=== PATIENT | male | born 1940 | race African-American/Black ===

== ENCOUNTER 2017-12-16 07:46 | Outpatient (CLI) | payer MEDICARE ==
--- NOTE | 2017-12-16 10:51 | CT ---
CHEST CT SCAN WITHOUT IV CONTRAST: History: 77-year-old male with history of abnormal chest radiograph. Exam performed without IV contrast since an IV cannot be obtained. Comparison: No prior report or prior radiographs are available for comparison. FINDINGS: Minimal scattered areas of pleural thickening bilaterally. Old granulomatous calcifications. Some naseem cristy pleural based linear and parenchymal changes in the lateral aspects of the right and left lowe r lobes, the left lingula, with a small subpleural bulla or bleb in the region of the lingula. No dis crete pulmonary mass. Aortic root approximates 4.3 cm. Coronary artery vascular calcifications. Multi level thoracic spine spondylosis. Small cyst in the medial aspect of the upper pole of the left kidne y. IMPRESSION: Some primarily pleural based linear and parenchymal changes as well as some minimal focal pleural thi ckening bilaterally. No discrete pulmonary mass. No mediastinal adenopathy. Other findings as above. POS: [facility]
== END 2017-12-16 07:47 | disposition home or self-care (01) ==
LOC: MADLAB 07:46
PROVIDERS: ATTEND Physician Assistant
DX: R93.8 Abnormal findings on diagnostic imaging of other specified body structures (principal); I25.10 Atherosclerotic heart disease of native coronary artery without angina pectoris; M47.894 Other spondylosis, thoracic region; N28.1 Cyst of kidney, acquired
CPT/HCPCS: 36415; 71250; 82565

== ENCOUNTER 2020-03-29 11:31 | Outpatient (CLI) | payer MEDICARE ==
--- NOTE | 2020-03-29 12:41 | ULT ---
US Renal Bilateral STANDARD: 03/29/2020 11:30 AM CLINICAL HISTORY: Chronic kidney disease. STUDY: Renal ultrasound COMPARISON: None. FINDINGS: Right kidney: The right kidney is not in the usual location and was seen in the right pelvis. Echogenicity: Normal. Masses/cysts: Multiple cysts measuring up to 5.3 cm in size Hydronephrosis: None. Calcifications: None. Length: 9.7 cm Left kidney: Echogenicity: Normal. Masses/cysts: None. Hydronephrosis: None. Calcifications: None. Length: 11.7 cm Limited visualization of the urinary bladder is unremarkable. No significant post void residual is se en. IMPRESSION: Right pelvic kidney containing cysts as above
== END 2020-03-29 11:32 | disposition home or self-care (01) ==
LOC: MADLAB 11:31
PROVIDERS: ATTEND Internal Medicine Nephrology
DX: N18.30 Chronic kidney disease, stage 3 unspecified (principal); N28.1 Cyst of kidney, acquired
CPT/HCPCS: 76770

== ENCOUNTER 2022-01-18 11:39 | Emergency (ER) | payer MEDICARE ==
[2022-01-18] MEDS ORDERED: Boostrix 0.5 ML (Tdap) VIAL (>/=7 yrs of age) ONE (12:11)
[2022-01-18] MEDS ORDERED: Lidocaine 1% (PF) 30 ML VIAL ONE (12:11)
[2022-01-18] MEDS ORDERED: Sulfameth/Trimethoprim DS 800-160mg TAB ONE (12:11)
[2022-01-18] MEDS ORDERED: Bacitracin 1 PK ONE (12:52)
== END 2022-01-18 13:08 | disposition home or self-care (01) ==
LOC: MADERS 11:39
DX: S90.852A Superficial foreign body, left foot, initial encounter (principal); L02.612 Cutaneous abscess of left foot; I10 Essential (primary) hypertension; X58.XXXA Exposure to other specified factors, initial encounter; Y92.009 Unspecified place in unspecified non-institutional (private) residence as the place of occurrence of the external cause; Z23 Encounter for immunization; Z87.891 Personal history of nicotine dependence; Z79.899 Other long term (current) drug therapy
CPT/HCPCS: 10120; 90471; 90715; J2001

== ENCOUNTER 2022-09-08 08:26 | Emergency (ER) | payer MEDICARE ==
[2022-09-08] MEDS ORDERED: Sodium Chloride 0.9% 1,000 ML ONE (08:55)
[2022-09-08 09:10] LABS: Hemoglobin 12.2 g/dL (14.0-18.0); Mean Corpuscular Hemoglobin 26.3 pg (27.0-31.0); Mean Corpuscular Volume 84.6 fl (78.0-98.0); Mean Platelet Volume 10.3 fL (7.4-10.4); Platelet Count 217 10x3/uL (130-400); RBC Distribution Width 14.8 % (11.5-14.5); Red Blood Cell (RBC) Count 4.66 mill/uL (4.70-6.10); White Blood Cell (WBC) Count 6.5 10x3/uL (4.8-10.8)
[2022-09-08] MEDS ORDERED: Acetaminophen 500 MG TAB ONE (09:40)
[2022-09-08 09:44] LABS: ALT (SGPT) 7 U/L (8-55); AST (SGOT) 12 U/L (5-34); Albumin 3.9 g/dL (3.4-4.8); Alkaline Phosphatase 90 U/L (40-110); Anion Gap 16 mmol/L (10-20); BUN (Urea Nitrogen) 20 mg/dL (8.4-25.7); Bilirubin, Total 0.2 mg/dL (0.2-1.2); Calc. Creatinine Clearance 0 mL/min (70-130); Calcium 9.5 mg/dL (7.8-10.44); Carbon Dioxide 14 mmol/L (23-31); Chloride 111 mmol/L (98-107); Estimated GFR 34; Glucose 117 mg/dL (83-110); Magnesium 2.1 mg/dL (1.6-2.6); Potassium 3.8 mmol/L (3.5-5.1); Protein, Total 7.9 g/dL (5.8-8.1); Sodium 137 mmol/L (136-145)
[2022-09-08 09:53] LABS: Anisocytosis SLIGHT = 6-15 cells (100X) (0-5/hpf); Band 45 % (5-11); Eosinophils 1 % (0-10); Lymphocytes 11 % (21-51); MDiff Complete? YES; Macrocytosis SLIGHT = 6-15 cells (100X) (0-5/hpf); Microcytosis SLIGHT = 6-15 cells (100X) (0-5/hpf); Monocytes 17 % (0-10); Neutrophil 26 % (42-75); Platelet Morphology Comment Appears Adequate; Reflex for Review?? YES
[2022-09-08] MEDS ORDERED: Iopamidol 370 76% 100 ML VIAL ONE (10:05)
[2022-09-08] MEDS ORDERED: Piperacillin/Tazobactam 4.5 GM VIAL ONE (11:12)
[2022-09-08] MEDS ORDERED: Sodium Chloride 0.9% 500 ML ONE ×2 (11:12→12:19)
[2022-09-08] MEDS ORDERED: Sodium Chloride 0.9% 100 ML ONE (11:12)
== END 2022-09-08 13:05 | disposition home or self-care (01) ==
LOC: MADERS 08:26
DX: K50.00 Crohn's disease of small intestine without complications (principal); I71.40 Abdominal aortic aneurysm, without rupture, unspecified; I12.9 Hypertensive chronic kidney disease with stage 1 through stage 4 chronic kidney disease, or unspecified chronic kidney disease; N18.9 Chronic kidney disease, unspecified; F17.220 Nicotine dependence, chewing tobacco, uncomplicated; D64.9 Anemia, unspecified; Z79.899 Other long term (current) drug therapy
CPT/HCPCS: 74177; 80053; 83605; 83735; 83880; 85025; 85060; 93005; 96361; 96365; J2543; J3490; J7030; J7050; Q9967

== ENCOUNTER 2022-09-28 11:50 | Emergency (ER) | payer MEDICARE | END 2022-09-28 13:48 | disposition home or self-care (01) | LOC: MADERS 11:50 | DX: K59.00 Constipation, unspecified (principal); I12.9 Hypertensive chronic kidney disease with stage 1 through stage 4 chronic kidney disease, or unspecified chronic kidney disease; N18.9 Chronic kidney disease, unspecified; E78.2 Mixed hyperlipidemia; Z87.891 Personal history of nicotine dependence; Z79.899 Other long term (current) drug therapy | CPT/HCPCS: 74176 ==